=== PATIENT | female | born 1990 | race African-American/Black ===

== ENCOUNTER 2017-08-06 23:05 | Emergency (ER) | payer OTHER ==
[~2017-08-06] VITALS: Ht 177.8 cm; Wt 202.3 kg
[~2017-08-06 23:05] MED LIST: ACETAMINOPHEN325 M1 PO; APAP/CODEINE ELI5 M1 OR; APAP500 PO; BACTRIM DS TAB1 EACH PO; DAYTIME NIGHTT PO; DICLOFENAC SODI75 MG PO; EXCEDRIN CAPLE1 EACH PO; HYCET 7.5 MG-3473 ML PO; HYDROCODONE-AP1 EAC6 PO; IBUPROFEN 400400 M2 PO; IBUPROFEN 600600 M1 PO; IBUPROFEN 800800 M1 PO; KEFLEX500 MG PO; NAPROSYN500 MG PO; PHENERGAN 25 MG25 M1 PO; PREDNISONE 20 M20 M1 PO; PROMETHAZINE HC25 MG RECTAL; PROMETHAZINE-C120 ML PO; TRAMADOL 50 MG50 MG PO; ULTRAM 50MG TAB50 MG PO; VALIUM5 MG PO; VENTOLIN HFA 1818 GM INH; XARELTO15 MG PO; XARELTO20 MG PO; ZPAK PO
[2017-08-07 00:09] LABS: ABSOLUTE NEUTROPHILS 7.1 thou/uL (1.4-8.2); BASOPHILS 0.3 % (0.0-2.0); EOSINOPHILS 3.8 % (0.0-3.0); HEMATOCRIT 37.5 % (37.0-47.0); HEMOGLOBIN 11.6 gm/dL (12.0-15.0); MCH 20.4 pg (26.0-34.0); MCHC 30.9 g/dL (28.0-37.0); MONOCYTES 5.5 % (1.0-8.0); PLATELET COUNT 241 thou/uL (150-400); POLYS 69.4 % (36.0-66.0); RBC 5.69 mil/uL (4.20-5.00); WBC 10.2 thou/uL (4.0-11.0)
[2017-08-07 00:16] LABS: CALCIUM 9.1 mg/dL (8.5-10.1); CREATININE 0.9 mg/dL (0.6-1.0); POTASSIUM 3.5 mmol/L (3.5-5.1)
[2017-08-07 00:22] LABS: ALBUMIN 3.2 g/dL (3.4-5.0); TOTAL BILIRUBIN 0.3 mg/dL (<0.1-1.0); TOTAL PROTEIN 7.8 g/dL (6.4-8.2)
[2017-08-07] MEDS ORDERED: CIPROFLOXACIN500 M1 PO (01:29)
[2017-08-07] MEDS ORDERED: NORCO 5-325 TA1 EACH PO (01:36)
[2017-08-07 04:44] LABS: ANISOCYTOSIS 1+; HYPOCHROMASIA 1+; LARGE PLATELETS OCCASIONAL
== END 2017-08-07 01:46 | disposition home or self-care (01) ==
LOC: ER 23:05
PROVIDERS: Emergency Medicine
DX: K52.9 Noninfective gastroenteritis and colitis, unspecified (principal); J45.909 Unspecified asthma, uncomplicated; F17.210 Nicotine dependence, cigarettes, uncomplicated; Z86.2 Personal history of diseases of the blood and blood-forming organs and certain disorders involving the immune mechanism; Z86.711 Personal history of pulmonary embolism

== ENCOUNTER 2017-11-24 12:29 | Emergency (ER) | payer OTHER ==
[~2017-11-24] VITALS: Ht 177.8 cm; Wt 199.6 kg
--- NOTE | ~2017-11-24 | EKG ---
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1990 Requested By: Esvin Marie Order Number: [id number] MD: Pop Foote Measurements Intervals [place] Rate: 65 P: 7 HI: 179 QRS: 9 QRSD: 102 T: 7 QT: 413 QTc: 430 Interpretive Statements Sinus rhythm RSR' in V1 or V2, probably normal variant Nonspecific T abnormalities, anterior leads Baseline wander in lead(s) II Compared to ECG 10/23/2014 07:09:51 No significant change was found Electronically Signed On 11-24-2017 17:11:11 CDT by Pop Foote [email or web address] <ELECTRONICALLY SIGNED> By: Pop Foote MD, FACC 11/24/17 1711 1235 1235 Pop Foote MD, [facility] /EPI
[~2017-11-24 12:29] MED LIST changes: +CIPROFLOXACIN500 M1 PO; +NORCO 5-325 TA1 EACH PO
[2017-11-24] MEDS ORDERED: PROZAC20 MG PO (12:37)
[2017-11-24 13:25] LABS: ANION GAP 3 mmol/L (7-16); BUN 10 mg/dL (7-18); CALCIUM 8.7 mg/dL (8.5-10.1); CHLORIDE 106 mmol/L (98-107); CO2 29 mmol/L (21-32); CREATININE 0.9 mg/dL (0.6-1.0); GLUCOSE 76 mg/dL (74-106); POTASSIUM 3.4 mmol/L (3.5-5.1); SODIUM 138 mmol/L (136-145)
[2017-11-24 13:34] LABS: TROPONIN-I <0.06 ng/mL (<0.06)
[2017-11-24] MEDS ORDERED: IBUPROFEN 800800 M1 PO (14:15)
[2017-11-24] MEDS ORDERED: NORFLEX100 MG PO (14:15)
== END 2017-11-24 14:51 | disposition home or self-care (01) ==
LOC: ER 12:29
PROVIDERS: Emergency Medicine
DX: R07.89 Other chest pain (principal); J45.909 Unspecified asthma, uncomplicated; F17.210 Nicotine dependence, cigarettes, uncomplicated

== ENCOUNTER 2018-03-23 11:44 | Emergency (ER) | payer OTHER ==
[~2018-03-23] VITALS: Ht 177.8 cm; Wt 186.0 kg
--- NOTE | ~2018-03-23 | EKG ---
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1990 Requested By: Esvin Marie Order Number: [id number] MD: Pop Foote Measurements Intervals [place] Rate: 62 P: 21 MO: 160 QRS: 17 QRSD: 99 T: 33 QT: 412 QTc: 419 Interpretive Statements Sinus rhythm RSR' in V1 or V2, probably normal variant Compared to ECG 11/24/2017 12:35:21 No significant change was found Electronically Signed On 03-24-2018 7:32:06 [employer]POS[employer] by Pop Foote [email or web address] <ELECTRONICALLY SIGNED> By: Pop Foote MD, [facility] 03/24/18 0732 1149 1149 Pop Foote MD, [facility] /EPI
[~2018-03-23 11:44] MED LIST changes: +NORFLEX100 MG PO; +PROZAC20 MG PO
[2018-03-23 12:58] LABS: HEMATOCRIT 33.1 % (37.0-47.0); HEMOGLOBIN 10.2 gm/dL (12.0-15.0); MCH 19.8 pg (26.0-34.0); MCHC 30.8 g/dL (28.0-37.0); MCV 64.3 fL (80.0-100.0); PLATELET COUNT 260 thou/uL (150-400); RBC 5.14 mil/uL (4.20-5.00); RDW 17.3 % (10.5-14.5)
[2018-03-23 13:05] LABS: ANION GAP 6 mmol/L (7-16); BUN 9 mg/dL (7-18); CALCIUM 9.5 mg/dL (8.5-10.1); CHLORIDE 104 mmol/L (98-107); CO2 31 mmol/L (21-32); CREATININE 0.9 mg/dL (0.6-1.0); GLUCOSE 82 mg/dL (74-106); POTASSIUM 3.8 mmol/L (3.5-5.1); SODIUM 141 mmol/L (136-145)
[2018-03-23 13:13] LABS: TROPONIN-I <0.06 ng/mL (<0.06)
[2018-03-23 13:16] LABS: ABSOLUTE NEUTROPHILS 4.1 thou/uL (1.4-8.2); PLATELET ESTIMATE NORMAL
[2018-03-23 13:17] LABS: ANISOCYTOSIS 1+; HYPOCHROMASIA 1+; MICROCYTES 2+
[2018-03-23 13:57] VITALS: BP 127/65
== END 2018-03-23 14:21 | disposition home or self-care (01) ==
LOC: ER 11:44
PROVIDERS: Emergency Medicine
DX: R07.9 Chest pain, unspecified (principal); J45.909 Unspecified asthma, uncomplicated; F17.210 Nicotine dependence, cigarettes, uncomplicated; Z86.711 Personal history of pulmonary embolism

== ENCOUNTER 2019-04-22 14:19 | Emergency (ER) | payer OTHER ==
[~2019-04-22] VITALS: Ht 175.3 cm; Wt 186.0 kg
[2019-04-22] MEDS ORDERED: NAPROSYN500 MG PO (15:55)
[2019-04-22 16:04] VITALS: BP 148/81
== END 2019-04-22 16:11 | disposition home or self-care (01) ==
LOC: ER 14:19
DX: N93.8 Other specified abnormal uterine and vaginal bleeding (principal); F17.210 Nicotine dependence, cigarettes, uncomplicated; J45.909 Unspecified asthma, uncomplicated; Z86.711 Personal history of pulmonary embolism; Z79.899 Other long term (current) drug therapy

== ENCOUNTER 2019-06-27 17:06 | Emergency (ER) | payer OTHER ==
[~2019-06-27] VITALS: Ht 177.8 cm; Wt 186.0 kg
[2019-06-27] MEDS ORDERED: WELLBUTRIN 100100 MG PO (17:21)
[2019-06-27] MEDS ORDERED: MOBIC15 MG PO (18:38)
[2019-06-27 18:42] VITALS: BP 117/78
== END 2019-06-27 18:50 | disposition home or self-care (01) ==
LOC: ER 17:06
DX: M25.561 Pain in right knee (principal); J45.909 Unspecified asthma, uncomplicated; F17.210 Nicotine dependence, cigarettes, uncomplicated; Z86.2 Personal history of diseases of the blood and blood-forming organs and certain disorders involving the immune mechanism; Z86.711 Personal history of pulmonary embolism